=== PATIENT | female | born 1990 | race Caucasian/White ===

== ENCOUNTER 2016-07-19 11:17 | Outpatient (CLI) | payer OTHER ==
[~2016-07-19] VITALS: Ht 157.5 cm; Wt 67.0 kg
[~2016-07-19 11:17] MED LIST: ALLEGRA; ATENOLOL 25 MG TABLE; ATIVAN0.5 MG PO; BACTRIM,SEPT1 TABLET; BENTYL10 MG; CARAFATE1 GM PO; CEFDINIR300 MG PO; CEFUROXIME500 MG PO; CELEXA20 MG PO; CHROMAGEN,1 CAPSULE PO; CIPRO500 MG PO; ENDOCET 5-3251 EACH; ENDOCET 5-3251 EACH PO; EXCEDRIN MIGRA1 EAC1 PO; FIORICET; FIORICET 50-301 EACH PO; FIORICET 50-321 EAC1 PO; FLAGYL500 MG PO; FLINTSTONES CO1 EACH PO; HYOSCYAMINE0.125 MG PO; KEFLEX500 MG PO; LEVAQUIN750 MG PO; LORTAB 5-325 M1 EACH PO; MACROBID100 MG PO; MEDROL DOSEPAK4 MG PO; METRONIDAZOLE500 MG PO; MICROGESTIN FE1 EACH PO; MOTRIN600 MG PO; MOTRIN800 MG PO; MUCUS RELIEF600 M1 PO; NO HOME MEDS; NORCO 5/3251 TABLET PO; PENTASA250 MG PO; PERCOCET 5/31 TABLET PO; PHENERGAN; PHENERGAN PR; PHENERGAN25 MG PR; PRENATAL TABLE1 EAC3 PO; PROMETHAZINE HC25 M1; PROMETHAZINE HC25 M1 PO; PROMETHAZINE HC25 MG; PYRIDIUM100 MG PO; ROBITUSSIN AC,T10 ML PO; TENORMIN25 MG PO; TESSALON PERLE100 MG PO; ZANTAC150 MG PO; ZITHROMAX500 MG PO; ZOFRAN ODT4 MG PO; ZOFRAN ODT8 MG PO; ZOFRAN4 MG PO; ZYRTEC; [UNRECOGNIZED DRUG - OTHER] PO
[2016-07-19] MEDS ORDERED: ZANTAC150 MG PO (12:19)
[2016-07-19] MEDS ORDERED: PRENATAL TABLE1 EAC3 PO (12:21)
[2016-07-19] MEDS ORDERED: VICODIN 5-3001 EACH PO (12:21)
== END 2016-07-19 17:30 | disposition home or self-care (01) ==
LOC: LDRP-OP → 2WEST 11:18 → LDRP-OP 09-14 13:51
DX: O99.613 Diseases of the digestive system complicating pregnancy, third trimester (principal); K59.00 Constipation, unspecified; O21.8 Other vomiting complicating pregnancy; Z3A.36 36 weeks gestation of pregnancy
CPT/HCPCS: 59025; G0378; J2405; J7120

== ENCOUNTER 2016-07-21 21:01 | Outpatient (CLI) | payer OTHER ==
[~2016-07-21] VITALS: Ht 157.5 cm; Wt 68.0 kg
[~2016-07-21 21:01] MED LIST changes: +VICODIN 5-3001 EACH PO
[2016-07-21 21:11] VITALS: BP 119/65
[2016-07-21] MEDS ORDERED: ONDANSETRON HCL4 MG PO (21:22)
[2016-07-21 21:54] LABS: EOSINOPHIL (%) 0.4 % (0-5); EOSINOPHIL COUNT 0.1 K/uL (0-0.3); HEMATOCRIT 32.9 % (36.0-46.0); IMMATURE GRANULOCYTE (%) 0.9 % (0.0-0.7); IMMATURE GRANULOCYTE COUNT 0.1 K/uL; INSTRUMENT ABS NEUTROPHIL CT 9.5 K/uL; LYMPHOCYTE COUNT 2.7 K/uL (1.0-2.8); MCH 30.8 PG (29.0-34.0); MCHC 34.3 G/DL (30.0-36.0); MCV 89.6 FL (83-99); MEAN PLAT.VOLUME 9.7 uM^3 (9.5-12.4); MONOCYTE (%) 7.1 % (3-12); NEUTROPHIL COUNT 9.5 K/uL (1.8-6.4); PLATELET COUNT 393 K/uL (156-360); RBC DIS.WIDTH-CV 13.1 % (11.8-14.6); RBC DIS.WIDTH-SD 43.1 % (39-53); RED BLOOD COUNT 3.67 M/uL (3.80-5.20); WHITE BLOOD COUNT 13.3 K/uL (4.1-10.2)
[2016-07-21 22:05] LABS: ANION GAP 18 MEQ/L (2-14); CHLORIDE 100 MEQ/L (99-109); POTASSIUM 3.5 MEQ/L (3.7-5.4); SAMPLE HEMOLYSIS CHECK 0; SAMPLE ICTERIC CHECK 0; SAMPLE LIPEMIA CHECK 0; SODIUM 136 MEQ/L (136-147)
[2016-07-21 22:10] LABS: ALKALINE PHOSPHATASE 108 IU/L (3-129); GFR ESTIMATE (CALCULATED) > 59 mL/min/; GLUCOSE 87 mg/dL (70-99); UREA NITROGEN (BUN) 10 mg/dL (9-23)
== END 2016-07-22 00:30 | disposition home or self-care (01) ==
LOC: LDRP-OP 21:01 → 2WEST 21:02 → LDRP-OP 09-14 17:49
PROVIDERS: Advanced Practice Midwife
DX: O99.613 Diseases of the digestive system complicating pregnancy, third trimester (principal); O99.333 Smoking (tobacco) complicating pregnancy, third trimester; K59.00 Constipation, unspecified; F17.210 Nicotine dependence, cigarettes, uncomplicated; Z3A.36 36 weeks gestation of pregnancy
CPT/HCPCS: 59025; 80053; 85025; G0378; J2405; J7120

== ENCOUNTER 2016-08-02 21:03 | Outpatient (CLI) | payer OTHER ==
[~2016-08-02] VITALS: Ht 157.5 cm; Wt 66.7 kg
[~2016-08-02 21:03] MED LIST changes: +ONDANSETRON HCL4 MG PO
[2016-08-02 21:17] VITALS: BP 121/71
[2016-08-02] MEDS ORDERED: VICODIN 5-3001 EACH PO (21:38)
[2016-08-02 22:58] LABS: ADD MIUA? YES; BILIRUBIN NEGATIVE; BLOOD NEGATIVE; COLOR AMBER ((YELLOW)); GLUCOSE (STRIP) NEGATIVE; KETONES NEGATIVE; LEUKOCYTES LARGE; NITRITE NEGATIVE; PROTEIN (STRIP) NEGATIVE; SPECIFIC GRAVITY 1.016 (1.000-1.030); UROBILINOGEN 0.2 MG/DL (0.2-1.0)
[2016-08-02 23:47] LABS: AMPHETAMINES QUANT VALUE 0 NG/ML; BARBITUATES QUANT VALUE 0 NG/ML; BENZODIAZEPINES QUANT VALUE 0 NG/ML; BENZODIAZEPINES, URINE SCREEN Negative (200 ng/mL); MARIJUANA QUANT VALUE 0 NG/ML; PHENCYCLIDINE QUANT VALUE 0 NG/ML
[2016-08-03 02:54] LABS: BACTERIA 3+ /HPF; EPITHELIAL CELLS 1+ /HPF; MUCUS TRACE /LPF; RED BLOOD CELLS 0-5 /HPF (0-5); WHITE BLOOD CELLS 30-40 /HPF (0-5)
== END 2016-08-02 22:40 | disposition home or self-care (01) ==
LOC: LDRP-OP 21:03 → 2WEST 21:04 → LDRP-OP 09-14 01:15
PROVIDERS: Advanced Practice Midwife
DX: O47.1 False labor at or after 37 completed weeks of gestation (principal); Z3A.38 38 weeks gestation of pregnancy
CPT/HCPCS: 59025; 80306 90; 81003; G0378

== ENCOUNTER 2016-10-19 07:10 | Day surgery (SDC) | payer OTHER ==
[~2016-10-19] VITALS: Ht 157.5 cm; Wt 55.0 kg
[2016-10-19 07:31] VITALS: BP 119/69
[2016-10-19] MEDS ORDERED: PERCOCET 5/31 TABLET PO (09:21)
[2016-10-19 10:15] VITALS: BP 101/63
[2016-10-19 11:00] VITALS: BP 111/85
== END 2016-10-19 11:20 | disposition home or self-care (01) ==
LOC: SDC
PROC: 0UL78DZ Occlusion of Bilateral Fallopian Tubes with Intraluminal Device, Via Natural or Artificial Opening Endoscopic (ICD-10-PCS; principal; 2016-10-19)
DX: Z30.2 Encounter for sterilization (principal); F17.210 Nicotine dependence, cigarettes, uncomplicated; F32.9 Major depressive disorder, single episode, unspecified; Z82.49 Family history of ischemic heart disease and other diseases of the circulatory system; Z83.2 Family history of diseases of the blood and blood-forming organs and certain disorders involving the immune mechanism
CPT/HCPCS: J0690; J1050; J1100; J1885; J2250; J2405; J3010; J7120

== ENCOUNTER 2016-10-25 16:10 | Emergency (ER) | payer OTHER ==
[~2016-10-25] VITALS: Ht 157.5 cm; Wt 56.6 kg
[2016-10-25 17:12] LABS: HEMATOCRIT 47.2 % (36.0-46.0); MCH 29.5 PG (29.0-34.0); MCHC 33.5 G/DL (30.0-36.0); MEAN PLAT.VOLUME 8.9 uM^3 (9.5-12.4); PLATELET COUNT 492 K/uL (156-360); RBC DIS.WIDTH-CV 12.5 % (11.8-14.6); RBC DIS.WIDTH-SD 40.4 % (39-53); RED BLOOD COUNT 5.35 M/uL (3.80-5.20); WHITE BLOOD COUNT 16.1 K/uL (4.1-10.2)
[2016-10-25 17:13] LABS: MCV 88.2 FL (83-99)
[2016-10-25 17:25] LABS: CHLORIDE 107 mEq/L (99-109); POTASSIUM 4.5 mEq/L (3.7-5.4); SODIUM 137 mEq/L (136-147)
[2016-10-25 17:27] LABS: GLUCOSE 110 mg/dL (70-99)
[2016-10-25 17:28] LABS: ANION GAP 12 MEQ/L (2-14)
[2016-10-25 17:29] LABS: TOTAL BILIRUBIN 1.5 mg/dL (0.0-1.0)
[2016-10-25 17:30] LABS: ALKALINE PHOSPHATASE 93 IU/L (3-129)
[2016-10-25 17:31] LABS: GFR ESTIMATE (CALCULATED) > 59 mL/min/
[2016-10-25 17:32] LABS: UREA NITROGEN (BUN) 18 mg/dL (9-23)
[2016-10-25 17:39] LABS: QUANTITATIVE HCG < 4.0 MIU/ML
[2016-10-25 18:37] LABS: ADD MIUA? YES; BILIRUBIN NEGATIVE; BLOOD SMALL; COLOR YELLOW ((YELLOW)); GLUCOSE (STRIP) NEGATIVE; KETONES 80; LEUKOCYTES LARGE; NITRITE NEGATIVE; PROTEIN (STRIP) 100; SPECIFIC GRAVITY 1.028 (1.000-1.030); UROBILINOGEN 0.2 MG/DL (0.2-1.0)
[2016-10-25 18:56] LABS: BACTERIA RARE /HPF; EPITHELIAL CELLS RARE /HPF; MUCUS 2+ /LPF; RED BLOOD CELLS 20-30 /HPF (0-5); UCUL ADDED? YES; WHITE BLOOD CELLS TNTC /HPF (0-5)
[2016-10-25] MEDS ORDERED: MACROBID100 MG PO (19:17)
[2016-10-25] MEDS ORDERED: COMPAZINE10 MG PO (19:17)
[2016-10-25 19:36] VITALS: BP 115/81
== END 2016-10-25 19:44 | disposition home or self-care (01) ==
LOC: EME 16:10
DX: R11.2 Nausea with vomiting, unspecified (principal); R19.7 Diarrhea, unspecified; N39.0 Urinary tract infection, site not specified; K51.90 Ulcerative colitis, unspecified, without complications; F32.9 Major depressive disorder, single episode, unspecified; F17.200 Nicotine dependence, unspecified, uncomplicated; K21.9 Gastro-esophageal reflux disease without esophagitis; J45.909 Unspecified asthma, uncomplicated; G25.81 Restless legs syndrome
CPT/HCPCS: 80053; 81003; 84702; 85027; 87086; 99281; 99284; J1630

== ENCOUNTER 2016-10-26 19:52 | Emergency (ER) | payer OTHER ==
[~2016-10-26] VITALS: Ht 157.5 cm; Wt 57.2 kg
[~2016-10-26 19:52] MED LIST changes: +COMPAZINE10 MG PO
[2016-10-27 00:28] VITALS: BP 123/84
== END 2016-10-27 00:31 | disposition home or self-care (01) ==
LOC: EME 19:52
DX: R68.84 Jaw pain (principal); G24.09 Other drug induced dystonia; F17.200 Nicotine dependence, unspecified, uncomplicated
CPT/HCPCS: 70110; 99281; 99284; J1200; J1885

== ENCOUNTER 2017-08-20 05:17 | Emergency (ER) | payer OTHER ==
[~2017-08-20] VITALS: Ht 157.5 cm; Wt 53.4 kg
[2017-08-20 05:49] LABS: HEMATOCRIT 41.4 % (36.0-46.0); HEMOGLOBIN 14.1 G/DL (11.9-15.5); MCH 30.3 PG (29.0-34.0); MCHC 34.1 G/DL (30.0-36.0); MCV 88.8 FL (83-99); PLATELET COUNT 424 K/uL (156-360); RBC DIS.WIDTH-CV 13.4 % (11.8-14.6); RBC DIS.WIDTH-SD 43.5 % (39-53); RED BLOOD COUNT 4.66 M/uL (3.80-5.20); WHITE BLOOD COUNT 11.8 K/uL (4.1-10.2)
[2017-08-20 05:57] LABS: ALBUMIN 4.6 g/dL (3.2-4.8)
[2017-08-20 05:58] LABS: CHLORIDE 106 mEq/L (99-109); POTASSIUM 3.7 mEq/L (3.7-5.4); SODIUM 141 mEq/L (136-147)
[2017-08-20 06:00] LABS: GLUCOSE 115 mg/dL (70-99); TOTAL PROTEIN 7.7 g/dL (6.4-8.3)
[2017-08-20 06:03] LABS: ALKALINE PHOSPHATASE 69 IU/L (3-129)
[2017-08-20 06:04] LABS: CREATININE 0.9 mg/dL (0.6-1.3); GFR ESTIMATE (CALCULATED) > 59 mL/min/
[2017-08-20 06:05] LABS: AST (GOT) 11 IU/L (2-34); UREA NITROGEN (BUN) 13 mg/dL (9-23)
[2017-08-20 06:07] LABS: ALT (GPT) 14 IU/L (3-49); LIPASE 33 U/L (1.0-51.0)
[2017-08-20 06:13] LABS: QUANTITATIVE HCG < 4.0 MIU/ML
[2017-08-20 07:26] LABS: APPEARANCE CLOUDY ((CLEAR)); BILIRUBIN NEGATIVE; BLOOD SMALL; COLOR YELLOW ((YELLOW)); GLUCOSE (STRIP) NEGATIVE; KETONES 20; LEUKOCYTES LARGE; NITRITE NEGATIVE; PROTEIN (STRIP) 100; SPECIFIC GRAVITY 1.027 (1.000-1.030); UROBILINOGEN 0.2 MG/DL (0.2-1.0)
[2017-08-20 07:59] LABS: EPITHELIAL CELLS 2+ /HPF; WHITE BLOOD CELLS 40-50 /HPF (0-5)
[2017-08-20 08:00] LABS: BACTERIA 2+ /HPF; MUCUS 3+ /LPF; UCUL ADDED? YES
[2017-08-20] MEDS ORDERED: REGLAN10 MG PO (09:32)
[2017-08-20] MEDS ORDERED: BENTYL20 MG PO (09:32)
[2017-08-20] MEDS ORDERED: KEFLEX500 MG PO (09:33)
[2017-08-20 09:56] VITALS: BP 130/87
[2017-08-21] MEDS ORDERED: ZOFRAN4 MG PO (14:17)
[2017-08-21] MEDS ORDERED: PERCOCET 5/31 TABLET PO (14:17)
== END 2017-08-20 09:57 | disposition home or self-care (01) ==
LOC: EME 05:17
DX: R10.13 Epigastric pain (principal); R11.2 Nausea with vomiting, unspecified; K51.90 Ulcerative colitis, unspecified, without complications; K58.9 Irritable bowel syndrome, unspecified; K21.9 Gastro-esophageal reflux disease without esophagitis; J45.909 Unspecified asthma, uncomplicated; G25.81 Restless legs syndrome; G43.909 Migraine, unspecified, not intractable, without status migrainosus; F32.9 Major depressive disorder, single episode, unspecified; F17.200 Nicotine dependence, unspecified, uncomplicated; Z88.5 Allergy status to narcotic agent; Z88.8 Allergy status to other drugs, medicaments and biological substances
CPT/HCPCS: 74177; 80053; 81003; 83690; 84702; 85027; 87077; 87086; 87186; 99281; 99285; J0500; J1885; J2405; J2765; J7030

== ENCOUNTER 2017-08-21 11:50 | Emergency (ER) | payer OTHER ==
[~2017-08-21] VITALS: Ht 157.5 cm; Wt 52.3 kg
[~2017-08-21 11:50] MED LIST changes: +BENTYL20 MG PO; +REGLAN10 MG PO
[2017-08-21 13:44] LABS: BASOPHIL (%) 0.5 % (0-1); BASOPHIL COUNT 0.1 K/uL (0-0.1); EOSINOPHIL (%) 0.7 % (0-5); EOSINOPHIL COUNT 0.1 K/uL (0-0.3); HEMATOCRIT 36.7 % (36.0-46.0); HEMOGLOBIN 12.4 G/DL (11.9-15.5); IMMATURE GRANULOCYTE (%) 0.4 % (0.0-0.7); LYMPHOCYTE (%) 18.2 % (15-42); LYMPHOCYTE COUNT 2.4 K/uL (1.0-2.8); MCHC 33.8 G/DL (30.0-36.0); MCV 88.6 FL (83-99); MONOCYTE (%) 6.8 % (3-12); MONOCYTE COUNT 0.9 K/uL (0-0.8); NEUTROPHIL (%) 73.4 % (45-76); NEUTROPHIL COUNT 9.5 K/uL (1.8-6.4); PLATELET COUNT 378 K/uL (156-360); RBC DIS.WIDTH-CV 13.1 % (11.8-14.6); RBC DIS.WIDTH-SD 42.8 % (39-53); RED BLOOD COUNT 4.14 M/uL (3.80-5.20); WHITE BLOOD COUNT 12.9 K/uL (4.1-10.2)
[2017-08-21 13:54] LABS: ALBUMIN 3.9 g/dL (3.2-4.8)
[2017-08-21 13:55] LABS: CHLORIDE 110 mEq/L (99-109); POTASSIUM 3.4 mEq/L (3.7-5.4); SODIUM 141 mEq/L (136-147)
[2017-08-21 13:57] LABS: GLUCOSE 103 mg/dL (70-99)
[2017-08-21 13:59] LABS: TOTAL BILIRUBIN 1.2 mg/dL (0.0-1.0)
[2017-08-21 14:00] LABS: ALKALINE PHOSPHATASE 57 IU/L (3-129)
[2017-08-21 14:01] LABS: CREATININE 0.8 mg/dL (0.6-1.3); GFR ESTIMATE (CALCULATED) > 59 mL/min/
[2017-08-21 14:02] LABS: AST (GOT) 9 IU/L (2-34); TOTAL PROTEIN 6.2 g/dL (6.4-8.3); UREA NITROGEN (BUN) 9 mg/dL (9-23)
[2017-08-21 14:03] LABS: ALT (GPT) 11 IU/L (3-49)
[2017-08-21 14:04] LABS: LIPASE 17 U/L (1.0-51.0)
[2017-08-21] MEDS ORDERED: ZOFRAN4 MG PO (14:17)
[2017-08-21] MEDS ORDERED: PERCOCET 5/31 TABLET PO (14:17)
[2017-08-21 14:54] VITALS: BP 120/71
== END 2017-08-21 14:58 | disposition home or self-care (01) ==
LOC: EME 11:50
PROVIDERS: Emergency Medicine
DX: R10.9 Unspecified abdominal pain (principal); R11.2 Nausea with vomiting, unspecified; R19.7 Diarrhea, unspecified; F17.200 Nicotine dependence, unspecified, uncomplicated
CPT/HCPCS: 80053; 83690; 85025; 99281; 99285; J2405; J3010; J7030

== ENCOUNTER 2017-09-11 07:05 | Day surgery (SDC) | payer OTHER ==
[~2017-09-11] VITALS: Ht 157.5 cm; Wt 54.4 kg
[2017-09-11 07:50] VITALS: BP 115/75
[2017-09-11 11:10] VITALS: BP 97/54
[2017-09-11 12:10] VITALS: BP 101/54
== END 2017-09-11 12:25 | disposition home or self-care (01) ==
LOC: SDC 07:05
PROVIDERS: Urology
PROC: 0TFD8ZZ Fragmentation in Urethra, Via Natural or Artificial Opening Endoscopic (ICD-10-PCS; principal; 2017-09-11)
PROC: 0TCD8ZZ Extirpation of Matter from Urethra, Via Natural or Artificial Opening Endoscopic (ICD-10-PCS; principal; 2017-09-11)
DX: N21.1 Calculus in urethra (principal); N36.8 Other specified disorders of urethra; T83.711A Erosion of implanted vaginal mesh to surrounding organ or tissue, initial encounter; Y76.3 Surgical instruments, materials and obstetric and gynecological devices (including sutures) associated with adverse incidents; K21.9 Gastro-esophageal reflux disease without esophagitis; F17.210 Nicotine dependence, cigarettes, uncomplicated; Z87.440 Personal history of urinary (tract) infections
CPT/HCPCS: 81025; 82365 90; 84132; J0690; J1100; J1580; J1885; J2250; J2405; J3010

== ENCOUNTER 2017-11-13 00:06 | Emergency (ER) | payer OTHER ==
[~2017-11-13] VITALS: Ht 157.5 cm; Wt 62.1 kg
[2017-11-13 00:58] LABS: HEMATOCRIT 37.8 % (36.0-46.0); HEMOGLOBIN 12.8 G/DL (11.9-15.5); MCH 30.3 PG (29.0-34.0); MCHC 33.9 G/DL (30.0-36.0); MCV 89.4 FL (83-99); PLATELET COUNT 388 K/uL (156-360); RBC DIS.WIDTH-CV 13.1 % (11.8-14.6); RED BLOOD COUNT 4.23 M/uL (3.80-5.20)
[2017-11-13 01:10] LABS: CHLORIDE 110 mEq/L (99-109); POTASSIUM 3.8 mEq/L (3.7-5.4); SODIUM 141 mEq/L (136-147)
[2017-11-13 01:11] LABS: GLUCOSE 101 mg/dL (70-99)
[2017-11-13 01:15] LABS: CREATININE 0.8 mg/dL (0.6-1.3); GFR ESTIMATE (CALCULATED) > 59 mL/min/
[2017-11-13 01:16] LABS: UREA NITROGEN (BUN) 18 mg/dL (9-23)
[2017-11-13 01:23] LABS: TROP-I INTERPRETATION NEGATIVE; TROPONIN-I < 0.01 ng/mL (0.0-0.30)
[2017-11-13] MEDS ORDERED: NORCO 5/3251 TABLET PO (01:41)
[2017-11-13] MEDS ORDERED: FLEXERIL10 MG PO (01:41)
[2017-11-13 02:20] VITALS: BP 110/88
== END 2017-11-13 02:25 | disposition home or self-care (01) ==
LOC: EME 00:06
DX: M94.0 Chondrocostal junction syndrome [Tietze] (principal); F32.9 Major depressive disorder, single episode, unspecified; G25.81 Restless legs syndrome; J45.909 Unspecified asthma, uncomplicated; K58.9 Irritable bowel syndrome, unspecified; F17.200 Nicotine dependence, unspecified, uncomplicated; Z88.5 Allergy status to narcotic agent
CPT/HCPCS: 71046; 80048; 84484; 85027; 85379; 93005; 99281; 99284